=== PATIENT | male | born 1950 | race Hispanic/Latino ===

== ENCOUNTER 2017-06-02 07:50 | Day surgery (SDC) | payer MEDICARE ==
[2017-06-02] MEDS ORDERED: Lidocaine 2% Inj (20ml) ONE (08:12)
[2017-06-02] MEDS ORDERED: Propofol 10 mg/ml Inj (20 ML) ONE ×2 (08:12→09:49)
[2017-06-02 08:39] VITALS: BMI 40.7
[2017-06-02] MEDS ORDERED: Lactated Ringer's 1,000 ML IV SCH (10:31)
[2017-06-02 11:41] VITALS: BP 119/72; PULSE 72; RESP 18; TEMP 97.5; O2SAT 95
== END 2017-06-02 12:19 | disposition home or self-care (01) ==
LOC: ENDO 07:50
PROVIDERS: ATTEND Internal Medicine Gastroenterology
DX: K31.7 Polyp of stomach and duodenum (principal); K50.90 Crohn's disease, unspecified, without complications; K29.50 Unspecified chronic gastritis without bleeding; K21.9 Gastro-esophageal reflux disease without esophagitis; K57.30 Diverticulosis of large intestine without perforation or abscess without bleeding; K64.8 Other hemorrhoids
CPT/HCPCS: 43239; 45380; 88305; 88312; 88342; J2704; J7040; J7120

== ENCOUNTER 2018-02-24 06:22 | Day surgery (SDC) | payer MEDICARE ==
[2018-02-22 13:18] VITALS: BMI 39.7
[2018-02-24] MEDS ORDERED: Lidocaine 2% Inj (20ml) ONE (06:40)
[2018-02-24] MEDS ORDERED: Phenylephrine 10 mg/ml Inj ONE (06:41)
[2018-02-24] MEDS ORDERED: Midazolam 2 MG/2 ML VIAL ONE ×3 (06:41→08:11)
[2018-02-24] MEDS ORDERED: Iodixanol 320 MG/ML 200 ML BOTTLE IV ONE (06:42)
[2018-02-24] MEDS ORDERED: Iohexol 350mgl/ml 50 ML ONE (06:42)
[2018-02-24] MEDS ORDERED: Nitroglycerin 50mg in D5W 0 MG/0 ML BOTTLE IV ONE (06:42)
[2018-02-24] MEDS ORDERED: Iodixanol 320 MG/ML 100 ML BOTTLE IV ONE (06:42)
[2018-02-24 06:50] LABS: BASO # 0.03 K/mm3 (0.0-2.0); BASO % 0.7 % (0.0-3.0); EOS # 0.1 (0.0-0.7); EOS % 2.2 % (1.5-5.0); GRAN # 2.25 (1.4-6.5); GRAN % 49.7 % (50.0-68.0); HEMOGLOBIN 12.5 g/dL (14.0-18.0); LYMPH # 1.8 (1.2-3.4); LYMPH % 39.7 % (22.0-35.0); MEAN CELL VOLUME 88.5 fl (80.0-105.0); MEAN CORPUSCULAR HEMOGLOBIN 29.9 pg (25.0-35.0); MEAN CORPUSCULAR HGB CONC 33.8 g/dl (31.0-37.0); MEAN PLATELET VOLUME 10.2 fl (7.0-11.0); MONO # 0.4 (0.1-0.6); MONO % 7.7 % (1.0-6.0); RBC 4.18 10^6/uL (3.5-6.1); WHITE BLOOD COUNT 4.5 10^3/ul (4.5-11.0)
[2018-02-24 07:21] LABS: INR 1.15 (0.93-1.08); PARTIAL THROMBOPLASTIN TIME 28.4 Seconds (25.1-36.5); PROTHROMBIN TIME 13.3 SECONDS (9.4-12.5)
[2018-02-24 07:26] LABS: BLOOD UREA NITROGEN 11 mg/dL (7-21); CALCIUM 9.6 mg/dL (8.4-10.5); GFR AFRICAN-AMERICAN > 60; GFR NON-AFRICAN AMERICAN > 60
[2018-02-24] MEDS ORDERED: Adenosine 90 mg/30mL IV ONE (08:24)
[2018-02-24] MEDS ORDERED: Sodium Chloride 0.9% 1,000 ML IV SCH (09:00)
[2018-02-24 09:23] VITALS: TEMP 97.6
--- NOTE | 2018-02-24 12:21 | CARDCATH ---
PROCEDURE DATE: 02/24/2018 HISTORY: The patient is a 68-year-old male with a history of CVA in the past. He suffers from peripheral vascular disease. He has diabetes mellitus controlled with diet. The patient had experienced chest discomfort and had an abnormal stress test. A cardiac catheterization was recommended. PROCEDURE: Left heart catheterization with coronary arteriography, left ventriculogram, FFR were performed. There were no complications. The right femoral artery was cannulated with a 6-[place] sheath. I performed moderate sedation which included the presence of an independent trained observer that assisted in monitoring the patient's level of consciousness and physiologic status. After administration of Versed and fentanyl, my intra-service time was 30 minutes. The findings on catheterization revealed a right dominant circulation. The RCA revealed diffuse atherosclerosis throughout its course. In the proximal portion of the RCA, there is a 30%-40% stenosis noted followed by a long 50%-60% stenosis in the midportion of the RCA. The left main artery was unremarkable. The LAD and diagonal vessels revealed diffuse atherosclerosis with a 20%-30% stenosis in the midportion of the LAD at the takeoff of the septal mounting inspector. The diagonal vessels were free of significant disease. The circumflex artery and obtuse marginal branches revealed intimal irregularities without significant stenoses. The left ventricle was visualized in the [place] projection. In the [place] projection, wall motion is within normal limits. Estimated ejection fraction of 60%. FFR was performed of the RCA. After 2 minutes of intravenous adenosine, the FFR was measured at 0.88. No further procedure was performed. Angio-Seal was used to close the femoral artery site. The patient tolerated the procedure well. In summary, the procedure revealed normal LV function. A 50%-60% stenosis in the mid RCA with an FFR of 0.88. Given these findings, the patient's single vessel disease will be treated medically. Cardiac risk reduction program has been discussed with the patient in detail. The patient is on Plavix because of his CVA without aspirin. Valdemar Lundy MD
[2018-02-24 13:57] VITALS: RESP 20; O2SAT 95
[2018-02-24 13:59] VITALS: BP 130/89; PULSE 75
--- NOTE | 2018-02-24 22:25 | CARD ---
APPROVED REPORT EKG Measurement Heart [id number] <Conclusion> Normal sinus rhythm with sinus arrhythmia Normal ECG
== END 2018-02-24 15:28 | disposition home or self-care (01) ==
LOC: CATH 06:22
PROVIDERS: ATTEND Internal Medicine Cardiovascular Disease
DX: I25.10 Atherosclerotic heart disease of native coronary artery without angina pectoris (principal); I10 Essential (primary) hypertension; E11.51 Type 2 diabetes mellitus with diabetic peripheral angiopathy without gangrene; E78.5 Hyperlipidemia, unspecified; Z86.73 Personal history of transient ischemic attack (TIA), and cerebral infarction without residual deficits
CPT/HCPCS: 36415; 80048; 85025; 85610; 85730; 86850; 86900; 93005; 93458; 93571; 99152; 99153; C1760; C1769 ×2; C1887; C2629; J0153; J0583; J1644; J2250; J3010; J7030; J7040; Q9966

== ENCOUNTER 2019-02-23 05:48 | Outpatient (CLI) | payer MEDICARE | END 2019-02-23 05:49 | disposition home or self-care (01) | LOC: CARDIO 05:48 ==